=== PATIENT | male | born 1950 | race Caucasian/White ===

== ENCOUNTER 2018-07-20 23:38 | Inpatient (IN) | payer BC, MEDICARE ==
[2018-07-21] MEDS ORDERED: Communication Order-Pharmacy FS SCH (01:45)
[2018-07-21 02:23] LABS: #Eosinphils 0.1 thou/uL (0.0-0.7); #Lymphocytes 1.8 thou/uL (1.20-3.40); #Monocytes 0.5 thou/uL (0.11-0.59); #Neutrophils 3.1 thou/uL (1.40-6.50); %Basophils 0.8 % (0.0-1.0); %Eosinophils 2.2 % (0.0-10.0); %Lymphocytes 31.6 % (21.0-51.0); %Monocytes 9.6 % (0.0-10.0); %Neutrophils 55.8 % (42.0-75.0); Hemoglobin 14.7 g/dL (14.0-18.0); Mean Corpuscular HGB CONC 33.1 g/dL (32.0-36.0); Mean Corpuscular Hemoglobin 33.3 pg (27.0-31.0); Platelet Count 166 thou/uL (130-400); RBC Distribution Width 12.4 % (11.5-14.5); Red Blood Cell (RBC) Count 4.41 mill/uL (4.70-6.10); White Blood Cell (WBC) Count 5.5 thou/uL (4.8-10.8)
[2018-07-21 02:30] LABS: INR-International Normal Ratio 1.1; PTT 26.9 SEC (22.9-36.1)
[2018-07-21 02:43] LABS: Anion Gap 16 mmol/L (10-20); BUN (Urea Nitrogen) 14 mg/dL (8.4-25.7); Calc. Creatinine Clearance 0 mL/min (70-130); Calcium 9.9 mg/dL (7.8-10.44); Carbon Dioxide 23 mmol/L (23-31); Chloride 107 mmol/L (98-107); Estimated GFR-MDRD Greater than 90; Glucose 107 mg/dL (80-115); Potassium 3.9 mmol/L (3.5-5.1); Sodium 142 mmol/L (136-145)
--- NOTE | 2018-07-21 03:17 | CON ---
DATE OF CONSULTATION: This is a 15-minute initial patient evaluation of which greater than 50% of the exam was spent counseling and coordinating the patient's care. Remainder of the exam was spent in review of the the patient's medical records and formulation of treatment plan as well as review of appropriate imaging studies. CHIEF COMPLAINT: Status post fall with traumatic subarachnoid hemorrhage. HISTORY OF PRESENT ILLNESS: Mr. Long is a 67-year-old male who presents to [facility] [place] as a transfer from [facility] [place] as he fell earlier today, striking the right side of his head resulting in bilateral traumatic subarachnoid hemorrhage. The patient is diabetic and had some kind of likely osteomyelitis of the right foot, which required several toes to be amputated. This has resulted in significant balance issues for the patient, although he has a walker at home, typically does not use it and intermittently uses a cane. Falls are common for him. Again, his balance is unstable. He underwent stent placement by Dr. Coleman at [facility] in 06/2018, which included one stent placement and is currently on Effient and 81 mg aspirin. The patient complains of headache and has noted that he does display some concussive like symptoms and he is forgetful and is not as energetic as he normally is. Review of patient's head CT from [facility] [place] shows bilateral left greater than right traumatic subarachnoid hemorrhage without evidence of skull fracture or hydrocephalus. PHYSICAL EXAMINATION: The patient is awake, alert, and appropriate. He has a repaired right scalp laceration. His pupils are sluggishly reactive and the right pupil is 2 to 3 mm, where the left pupil is 3 to 4 mm. The patient denies blurred vision. He follows commands equally in all four extremities and he has no pronator drift. GCS currently is 15. IMPRESSION/DIAGNOSES: Status post fall on Effient and aspirin for cardiac stenting in 06/2018 with left greater than right traumatic subarachnoid hemorrhage. PLAN: Our Trauma colleagues have graciously admitting the patient. We will continue to follow him closely. I have asked that he be placed in the CCU with every 1 hour neuro checks. Head of bed elevated at 30 degrees. He has no tenderness to palpation in the neck and does not complain of neck pain and therefore, collar is not required. We will hold his Effient and aspirin for the time being. I have updated the patient and his family that he likely does not require any type of neurosurgical intervention, but we will follow him with serial CT scans. This is certainly good news for the patient. Please call with any changes in the patient's neurologic status. I have asked that his systolic blood pressure remain less than 150 and he is n.p.o. until his repeat head CT has been completed in the morning. Again, please call with questions in the patient's neurologic exam. Otherwise, we will follow up later. Job ID: [id number]
--- NOTE | 2018-07-21 04:34 | HP ---
The trauma surgeon is Dr. Abelino Hardin. CONSULTING PHYSICIAN: Dr. Winn, Neurosurgery. HISTORY OF PRESENT ILLNESS: Patient is a 67-year-old male, who reported tripping over his cat, falling and striking his head on the right side with positive loss of consciousness. He does take aspirin and Effient at home and had a one cardiac stent placed on June 21 of this year. Patient arrived to the emergency department and received a CT of the head, which demonstrated bilateral subarachnoid hematomas. Subsequently, Neurosurgery was consulted as well as Trauma Surgery. Patient has GCS of 15 and neurologically intact. He reports that he has a slight headache, but otherwise no other complaints. Denies nausea, vomiting, or diarrhea, difficulty concentrating as well as difficulty with his vision. REVIEW OF SYSTEMS: All additional 10-point review of systems negative, except as indicated above. PAST MEDICAL HISTORY: Cardiac stent x1, June 21, 2018; diabetes; hypertension. PAST SURGICAL HISTORY: Three back surgeries, left shoulder surgery, bilateral knee replacements, and a gastric sleeve. SOCIAL HISTORY: Patient does not use any tobacco products or illegal drugs. He is a daily drinker, however. MEDICATIONS: Effient, Aspirin, Amlodipine, Metoprolol, Metformin, and Duloxetine ALLERGIES: NO KNOWN DRUG ALLERGIES. PHYSICAL EXAMINATION: VITAL SIGNS: Heart rate 78, blood pressure 117/73, respirations 18, and O2 saturation 97% on room air. PRIMARY SURVEY: Airway intact. Adequate breath sounds bilaterally. 2+ distal pulses palpable in the bilateral radials, femorals, and DPs. GCS is 15. Gross motor and sensation intact. Pupils equal, round, and reactive to light. No focal neurological deficits. Abrasion laceration to the right forehead with navi in place and bleeding controlled, minimal abrasions to bilateral knees. No bruising noted. No significant external bleeding noted. SECONDARY SURVEY: Head abrasion laceration to right forehead with navi in place. Bleeding well controlled. No gross palpable skull deformities or tenderness. Eyes, 2 to 1 bilaterally. Right pupil is slightly smaller compared to the left , but otherwise reactive. ENT, no hemotympanum. No epistaxis. No septal hematoma. Midface stable to manipulation. No blood in the oropharynx. Dentition is intact. No anterior neck injury/crepitus/tenderness. C-spine no step-offs or tenderness or deformities, C-collar not in place. CHEST: Nontender. No crepitus. No abrasions or ecchymosis. Equal chest rise and fall. ABDOMEN: Soft, nontender, and nondistended. PELVIS: Stable to palpation. Nontender. No abrasions or ecchymosis. RECTAL: Deferred. GENITOURINARY: Deferred. EXTREMITIES: Very superficial abrasion to bilateral knees. No abrasions or ecchymosis noted. 2+ radials, femorals, and DP pulses present bilaterally. BACK/SPINE: No step-offs or deformities or tenderness to palpation of the thoracic or lumbar spine. No abrasions or ecchymosis noted. NEUROLOGIC: GCS is 15. 5/5 strength in the bilateral rate clerk, plantar flexion, and dorsiflexion. Gross motor and sensation intact in all 4 extremities. LABORATORY DATA: White count 5.5, hemoglobin 14.7, hematocrit 44.3, and platelets 166. INR 1.1. Sodium 142, potassium 3.9, chloride 107, carbon dioxide 23, BUN 14, and creatinine 0.67. DIAGNOSTIC FINDINGS: CT of the brain demonstrated bilateral subarachnoid hemorrhages. ASSESSMENT: 1. Status post mechanical fall from standing with loss of consciousness. 2. Bilateral subarachnoid hemorrhages. 3. History of diabetes, hypertension, and cardiac stents one month ago. 4. History of alcohol abuse. PLAN: Patient will be admitted to the CCU. Dr. Winn was consulted, who recommended q.1 hour neuro checks, head of bed up at 30 degrees, and a repeat head CT in the morning. Would complete CT of the head earlier if patient has a decline in his GCS. Will be n.p.o., but can have sips with medications. We will start Serax in the a.m. for alcohol withdrawal. We will also receive blood draw in the a.m. He is going to be on insulin sliding scale with q.4 hour glucose checks. He will also be on a bowel regimen. Patient was seen and examined by Dr. Dr. Hardin and myself this morning in the emergency department. Job ID: [id number] [facility]
[2018-07-21] MEDS ORDERED: Dextrose 50% Abboject 50 ML SYRINGE SLOW IVP PRN (07:23)
[2018-07-21] MEDS ORDERED: Promethazine HCl 25 MG/ML VIAL IM PRN (07:23)
[2018-07-21] MEDS ORDERED: HumaLOG 300 UNITS/3 ML VIAL SC PRN (07:23)
[2018-07-21] MEDS ORDERED: Ondansetron PF 4 MG/2 ML Vial IVP PRN (07:23)
[2018-07-21] MEDS ORDERED: Sodium Chloride 0.9% 1,000 ML IV SCH (07:23)
[2018-07-21] MEDS ORDERED: Dextrose 5% in Water 1,000 ML IV PRN (07:23)
[2018-07-21] MEDS ORDERED: traMADol HCl 50 MG TAB PO PRN ×2 (07:23)
[2018-07-21] MEDS ORDERED: Morphine 4 MG/ML VIAL SLOW IVP PRN (08:21)
[2018-07-21] MEDS: hydrALAZINE 20 MG/ML VIAL SLOW IVP PRN (08:34)
[2018-07-21 08:54] VITALS: BMI 32.8
--- NOTE | 2018-07-21 08:55 | CT ---
CT HEAD NONCONTRAST: Date: 07/21/18 HISTORY: Intracranial hemorrhage. Follow-up. COMPARISON: Earlier exam same date. FINDINGS: Areas of subarachnoid hemorrhage within sulci over each temporal lobe and each frontal lobe are simil ar in appearance to the prior study. Small amount of subdural hematoma along the anterior falx is als o stable. Septum pellucidum remains midline. No intraventricular hemorrhage is apparent. Basilar cist erns are maintained. Large right frontal scalp injury is similar in appearance to the prior study. IMPRESSION: Subarachnoid and subdural blood, and other findings are stable. POS: [facility]
[2018-07-21] MEDS: Labetalol HCl 100 MG/20 ML VIAL SLOW IVP PRN ×2 (09:06→10:01)
[2018-07-21] MEDS: Acetaminophen 1,000 MG in Premix Bag 1 BAG IVPB SCH ×3 (09:09→20:06)
[2018-07-21 10:39] LABS: Magnesium 1.6 mg/dL (1.6-2.6); Phosphorus 3.6 mg/dL (2.3-4.7)
[2018-07-21] MEDS ORDERED: Labetalol HCl 100 MG/20 ML VIAL SLOW IVP PRN (10:57)
[2018-07-21] MEDS ORDERED: hydrALAZINE 20 MG/ML VIAL SLOW IVP PRN (10:57)
[2018-07-21] MEDS ORDERED: niCARdipine HCl 25 MG in Sodium Chloride 0.9% 250 ML 240 ML IVPB SCH (11:00)
[2018-07-21] MEDS: Senokot S 8.6-50 MG TAB PO SCH ×2 (11:39→20:08)
[2018-07-21] MEDS: Gabapentin 100 MG CAP PO SCH ×3 (11:39→20:09)
[2018-07-21] MEDS: Oxazepam 10 MG CAP PO SCH ×3 (11:39→23:32)
[2018-07-21] MEDS: Polyethylene Glycol 3350 17 GM Packet PO SCH (11:40)
[2018-07-21] MEDS: Famotidine 20 MG TAB PO SCH ×2 (11:40→20:10)
--- NOTE | 2018-07-21 11:42 | PRG ---
DATE OF SERVICE: 07/21/2018 This is a 30-minute initial hospital visit note, in which 30 minutes were spent reviewing the imaging record, evaluation, examination of the patient, formulation of plan. Greater than 50% time was spent in counseling on Mau Long. SUBJECTIVE: Mr. Long is a 67-year-old man who was admitted for fall. He sustained right greater than left traumatic subarachnoid hemorrhage. He is on aspirin and Effient, status post cardiac stenting at [facility] one month ago. There was a slight increase on his intracranial bleed post admission but neurologically has remained intact and nonfocal. He has a right frontal laceration that was repaired with navi. He has associated ecchymoses in the right perioral region. We will plan to mobilize him and I would be fine with dismissal. I have let the patient know that ideally he would be on dual antiplatelet therapy. The problem is if we do this now, he runs the high risk of expansion of his intracranial bleed. My contention would be, continue a baby aspirin for the next two weeks with a repeat head CT in my clinic and if everything is fine, we will plan for re-initiation of Effient. He should contact his senior ux designer as well to let him know this. It is my understanding that the senior ux designer would likely want him to be on dual antiplatelet therapy for three months, but more likely six months. DIAGNOSIS: Traumatic subarachnoid hemorrhage, on dual antiplatelet therapy, status post fall. Job ID: [id number]
[2018-07-21] MEDS ORDERED: Magnesium 2 GM/50 ML 2 GM in Premix Bag 1 BAG IVPB SCH (12:00)
[2018-07-21] MEDS ORDERED: Aspirin 81 mg Enteric Coated Tablet PO SCH (12:00)
[2018-07-21] MEDS ORDERED: Metoprolol Tartrate 100 MG TAB PO SCH (12:00)
[2018-07-21] MEDS ORDERED: Amlodipine 5 MG TAB PO SCH (12:00)
[2018-07-21] MEDS ORDERED: Potassium Phosphate 15 MMOL in Sodium Chloride 0.9% 250 ML 250 ML IVPB SCH (13:00)
--- NOTE | 2018-07-21 14:06 | CT ---
PRELIMINARY REPORT/[facility]/EMERGENTY AFTER-HOURS PROCEDURE Addendum created by Ilana Goodwin MD on 07/21/2018 1:55 AM Central Time ([place] & [place]) THIS REPORT CONTAINS FINDINGS THAT MAY BE CRITICAL TO PATIENT CARE. The findings were verbally commun icated via telephone conference with Shelly Hirsch by Dr. Goodwin on 07/21/2018 1:55 AM FINANCIAL SERVICES COUNSELOR. The re sults were acknowledged and understood. Initial Report created on 07/21/2018 1:54 AM Central Time ([place] & [place]) EXAM: CT Head Without Contrast EXAM DATE/TIME: 07/21/2018 1:34 AM CLINICAL HISTORY: 67 years old, male; Injury or trauma; Fall; Initial encounter; Blunt trauma (contusions or hematomas) ; Patient HX: M67 presents to ed via xfer from [facility]. PT reports he tripped over his cat and fe ll earlier today. PT is unsure of loc. Denies ACUNA, vision changes, nausea, chest pain, or SOB. PT is o n blood thinners, aspirin and effient. Last dose of effient was at 0800 this morning TECHNIQUE: Axial computed tomography images of the head/brain without contrast. COMPARISON: No relevant prior studies available. FINDINGS: Brain: Moderate, acute bilateral subarachnoid hemorrhages opacifying insular and lateral parietal sulci bila terally. There is also small acute subdural hematoma along the interhemispheric fissure anteriorly, m easuring 2.5 cm in length and 0.6 cm in transverse dimension. There is global and diffuse parenchymal volume loss. There are scattered foci of decreased attenuation in the periventricular and subcortical white matter, nonspecific, but most consistent wit h chronic small vessel ischemic changes in patient of this age. Ventricles / cisterns / extra-axial spaces: There is no hydrocephalus or midline shift. 8 mm colloid cyst noted at the midline in the region of t he third ventricle. Soft tissues: Large right frontoparietal subgaleal scalp hematoma without underlying skull fracture o r depression. Sinuses: No findings of acute sinusitis or suspicious sinus mass. Bone: No acute fracture or displacement. Impression: Moderate acute bilateral subarchnoid hemorrhages. Small acute subdural hemorrhage. No hydrocephalus, midline shift, or axial herniation. Small colloid cyst. Chronic volume loss and microvascular disease. Large right frontoparietal subgaleal scalp hematoma without underlying skull fracture or depression. Thank you for allowing us to participate in the care of your patient. Dictated and Authenticated by: Ilana Goodwin MD 07/21/2018 1:54 AM Central Time ([place] & [place]) FINAL REPORT CT HEAD NONCONTRAST PERFORMED ON AN EMERGENCY BASIS: Date: 07/21/18 Time: 0135 hours HISTORY: Fall. Head injury. FINDINGS/IMPRESSION: Findings agree with the preliminary report by Cornelio. Bilateral subarachnoid hemorrhage is confirmed. S mall anterior falcine subdural hematoma. Small colloid cyst. Large scalp injury over the right fronta l calvarium. POS: [facility]
[2018-07-21] MEDS ORDERED: DULoxetine 60 MG CAP PO SCH (21:00)
[2018-07-21] MEDS ORDERED: Pravastatin Sodium 20 MG TAB PO SCH (21:00)
--- NOTE | 2018-07-21 23:19 | PDOC.GSPN ---
Surgery Progress Note: Subj - Subjective Narrative: Saw and personally examined patient in the emergency room at time of admission and again on rounds this morning with trauma PA. Agree with treatment plan. Surgery Progress Note: Obj - Vital signs Vital signs: Vital Signs - Most Recent Temp Pulse Resp BP Pulse Ox 98.8 F 75 16 145/89 H 97 07/21/18 20:00 07/21/18 20:00 07/21/18 20:00 07/21/18 20:00 07/21/18 20:00 Surgery Progress Note: Results - Labs Result Diagrams: 07/21/18 02:16 07/21/18 02:16 Lab results: Laboratory Results - last 24 hr 07/21/18 07/21/18 07/21/18 15:21 20:28 21:02 POC Glucose 131 H 139 H POC Glucose (other) 142 H
[2018-07-22] MEDS: hydrALAZINE 20 MG/ML VIAL SLOW IVP PRN ×2 (00:05→05:05)
[2018-07-22] MEDS: Labetalol HCl 100 MG/20 ML VIAL SLOW IVP PRN (00:46)
[2018-07-22] MEDS: Acetaminophen 1,000 MG in Premix Bag 1 BAG IVPB SCH ×2 (01:35→09:27)
[2018-07-22 08:01] VITALS: TEMP 97.7
[2018-07-22] MEDS: Senokot S 8.6-50 MG TAB PO SCH (08:12)
[2018-07-22] MEDS: Gabapentin 100 MG CAP PO SCH (08:13)
[2018-07-22] MEDS: Famotidine 20 MG TAB PO SCH (08:13)
[2018-07-22] MEDS: Polyethylene Glycol 3350 17 GM Packet PO SCH (08:15)
[2018-07-22 08:20] VITALS: BP 157/89
[2018-07-22 08:36] LABS: #Eosinphils 0.3 thou/uL (0.0-0.7); #Lymphocytes 1.2 thou/uL (1.20-3.40); #Monocytes 0.9 thou/uL (0.11-0.59); %Basophils 0.6 % (0.0-1.0); %Eosinophils 4.3 % (0.0-10.0); %Lymphocytes 19.2 % (21.0-51.0); %Monocytes 13.3 % (0.0-10.0); %Neutrophils 62.5 % (42.0-75.0); Hemoglobin 14.5 g/dL (14.0-18.0); Mean Corpuscular HGB CONC 33.2 g/dL (32.0-36.0); Mean Corpuscular Hemoglobin 32.7 pg (27.0-31.0); Mean Corpuscular Volume 98.3 fL (78.0-98.0); Mean Platelet Volume 8.2 fL (7.4-10.4); Platelet Count 170 thou/uL (130-400); RBC Distribution Width 12.6 % (11.5-14.5); Red Blood Cell (RBC) Count 4.43 mill/uL (4.70-6.10); White Blood Cell (WBC) Count 6.4 thou/uL (4.8-10.8)
[2018-07-22 08:57] LABS: Anion Gap 12 mmol/L (10-20); BUN (Urea Nitrogen) 11 mg/dL (8.4-25.7); Calc. Creatinine Clearance 199 mL/min (70-130); Calcium 9.6 mg/dL (7.8-10.44); Carbon Dioxide 24 mmol/L (23-31); Chloride 105 mmol/L (98-107); Estimated GFR-MDRD Greater than 90; Glucose 137 mg/dL (80-115); Phosphorus 2.6 mg/dL (2.3-4.7); Potassium 3.8 mmol/L (3.5-5.1); Sodium 137 mmol/L (136-145)
[2018-07-22] MEDS ORDERED: Thiamine 100 MG TAB PO SCH (09:00)
[2018-07-22] MEDS ORDERED: Aspirin 81 mg Enteric Coated Tablet PO SCH (09:00)
[2018-07-22] MEDS ORDERED: Amlodipine 5 MG TAB PO SCH (09:00)
[2018-07-22] MEDS ORDERED: Metoprolol Tartrate 100 MG TAB PO SCH (09:00)
[2018-07-22] MEDS ORDERED: CeleCOXIB 100 MG CAP PO SCH (09:00)
[2018-07-22] MEDS ORDERED: Folic Acid 1 MG TAB PO SCH (09:00)
[2018-07-22] MEDS: Oxazepam 10 MG CAP PO SCH (09:26)
--- NOTE | 2018-07-22 12:37 | DIS ---
DATE OF ADMISSION: 07/21/2018 DATE OF DISCHARGE: 07/22/2018 ADMISSION DIAGNOSES: Status post mechanical fall from standing, bilateral subarachnoid hemorrhages, and right forehead abrasion/laceration. DISCHARGE DIAGNOSES: Status post mechanical fall from standing, bilateral subarachnoid hemorrhages, and right forehead abrasion/laceration. CONSULTING PHYSICIAN: Dr. Winn, Neurosurgery. PROCEDURES PERFORMED: None. DISCHARGE DISPOSITION: Home. DISCHARGE CONDITION: Satisfactory. PHYSICAL EXAMINATION: VITAL SIGNS: Temperature 97.7, heart rate 102, respirations 20, oxygen saturation 93% on room air, blood pressure 157/89. NEUROLOGIC: GCS is 15. No gross neurological deficits. Gross motor and sensation are intact. PULMONARY: Equal chest rise and fall. Clear lung sounds bilaterally. No signs of respiratory distress. CARDIAC: Regular rate and rhythm. No murmurs, gallops, or rubs. GI: Abdomen is soft, nontender, and nondistended. EXTREMITIES: Normal gross motor and sensation. 2+ pulses in all extremities. No significant swelling noted. DISCHARGE INSTRUCTIONS: The patient was discharged home, and family will be able to take care of him. He will have home physical therapy for balance and mobility. He has a walker at home, and he will use the walker. He was given a prescription for tramadol for pain. He will follow up with Neurosurgery in 2 weeks. He was told that he can take his aspirin, but should hold off on his Effient due to his traumatic brain injury. MEDICATIONS: 1. Tramadol. 2. Pravastatin. 3. Cymbalta. 4. Metoprolol. 5. Aspirin. 6. Thiamine. 7. Metformin. 8. Celecoxib. 9. Amlodipine. FOLLOWUP APPOINTMENTS: He will follow up with Dr. Winn in 2 weeks. He will repeat a head CT before followup. This is merely a summary of the patient's hospitalization. For full details, please see his medical chart in its entirety. Job ID: [id number]
== END 2018-07-22 11:30 | disposition home health service (06) | DRG 84 ==
LOC: ERS 23:38 → CCU 07-21 01:42 → SURG A 07-21 15:41
PROVIDERS: ADMIT Surgery; ATTEND Surgery
DX: S06.6X9A Traumatic subarachnoid hemorrhage with loss of consciousness of unspecified duration, initial encounter (principal); E11.9 Type 2 diabetes mellitus without complications; I10 Essential (primary) hypertension; S01.81XA Laceration without foreign body of other part of head, initial encounter; R40.2362 Coma scale, best motor response, obeys commands, at arrival to emergency department; R40.2252 Coma scale, best verbal response, oriented, at arrival to emergency department; R40.2142 Coma scale, eyes open, spontaneous, at arrival to emergency department; Z79.84 Long term (current) use of oral hypoglycemic drugs; Z79.02 Long term (current) use of antithrombotics/antiplatelets; Z79.82 Long term (current) use of aspirin; Z79.899 Other long term (current) drug therapy; Z95.5 Presence of coronary angioplasty implant and graft; Z96.653 Presence of artificial knee joint, bilateral; W01.0XXA Fall on same level from slipping, tripping and stumbling without subsequent striking against object, initial encounter
CPT/HCPCS: 36415; 36416; 70450; 80048; 83735; 84100; 85025; 85610; 85730; 93005; 93010; G0390; J0131; J0360; J3475; J7050

== ENCOUNTER 2018-08-05 13:30 | Outpatient (CLI) | payer MEDICARE ==
--- NOTE | 2018-08-05 15:39 | CT ---
HEAD CT NONCONTRAST: Comparison: 07-25-18 Indication: Intracranial hemorrhage, follow up. FINDINGS: Compared to prior exam there has been marked interval improvement with regard to prior acute intracra nial hemorrhage. There is a persistent focal density near the Foramen of Garcia compatible with a col loid cyst. Right frontal scalp hematoma is seen. There is mild opacification of the paranasal sinuses . IMPRESSION: 1. Marked interval improvement of prior intracranial hemorrhage. No significant intracranial hemorrha ge persists. There is no mass effect or midline shift. 2. Small hyperdensity of the anterior third ventricle compatible with colloid cyst. 3. Right frontal scalp hematoma. POS: [facility]
== END 2018-08-05 13:31 | disposition home or self-care (01) ==
LOC: TBSIIMAG 13:30
PROVIDERS: ATTEND Surgery
DX: S06.6X0D Traumatic subarachnoid hemorrhage without loss of consciousness, subsequent encounter (principal)
CPT/HCPCS: 70450

== ENCOUNTER 2020-06-18 11:58 | Outpatient (CLI) | payer MEDICARE ==
[2020-06-18 14:33] LABS: Hemoglobin 14.3 g/dL (14.0-18.0); Mean Corpuscular HGB CONC 33.7 G/DL (32.0-36.0); Mean Corpuscular Hemoglobin 32.3 PG (27.0-33.0); Mean Corpuscular Volume 95.7 fl (80.0-100.0); Mean Platelet Volume 10.3 fl (7.4-10.4); Platelet Count 225 10x3/uL (130-400); RBC Distribution Width 13.8 % (11.5-14.5); Red Blood Cell (RBC) Count 4.43 10x6/uL (4.40-5.80); White Blood Cell (WBC) Count 4.8 10x3/uL (4.5-11.0)
[2020-06-18 14:51] LABS: Anion Gap 19 mmol/L (10-20); BUN (Urea Nitrogen) 20 mg/dL (8.4-25.7); Calc. Creatinine Clearance 0 mL/min (70-130); Calcium 9.7 mg/dL (7.8-10.44); Carbon Dioxide 24 mmol/L (23-31); Chloride 101 mmol/L (98-107); Glucose 103 mg/dL (80-115); Potassium 4.6 mmol/L (3.5-5.1); Sodium 139 mmol/L (136-145)
[2020-06-18 15:04] LABS: INR-International Normal Ratio 1.1; Prothrombin Time 11.9 sec (9.5-12.1)
[2020-06-19 06:16] LABS: SARS-CoV-2 PCR by NAA Not Detected (NotDetected)
== END 2020-06-18 11:59 | disposition home or self-care (01) ==
LOC: LABBT 11:58
PROVIDERS: ATTEND Internal Medicine Cardiovascular Disease
DX: Z01.812 Encounter for preprocedural laboratory examination (principal); Z20.822 Contact with and (suspected) exposure to COVID-19; R00.1 Bradycardia, unspecified
CPT/HCPCS: 80048; 85027; 85610; U0003; U0005; 87635

== ENCOUNTER → 2020-06-22 | Day surgery (SDC) | payer MEDICARE ==
[2020-06-21 11:10] VITALS: BMI 37.1
[~2020-06-22] MED LIST: Acetaminophen/Codeine 30-300mg Tablet ONE; CEFAZOLIN 1 GM VIAL ONE; Fentanyl 100 MCG/2 ML VIAL ONE; Gentamicin 80 MG/2 ML VIAL ONE; Iopamidol 370 76% 50 ML VIAL FS ONE; Midazolam HCl 2 mg/2 ml Vial ONE; Vancomycin 1.5 GRAM/300 ML BAG ONE; hydrALAZINE 20 MG/ML VIAL ONE; hydrALAZINE 20 MG/ML VIAL SLOW IVP SCH
--- NOTE | 2020-06-22 13:54 | RAD ---
CHEST ONE VIEW: 06/22/20 HISTORY: Pacemaker placement. COMPARISON: None. FINDINGS: Dual lead pacer is in place with leads poorly seen due to poor penetration although the electrode tip s are felt to project over the right atrial appendix and right ventricle. Large right pleural effusio n. Heart size is enlarged. No pneumothorax. IMPRESSION: 1. Pacemaker electrode tips felt to project over the right atrial appendage and right ventricle. 2. Marked cardiomegaly. 3. Large right layering pleural effusion. 4. No pneumothorax. POS: [facility]
--- NOTE | 2020-06-24 13:14 | EKG ---
Test Reason : POST PACEMAKER INSER Blood Pressure : / mmHG Vent. Rate : 062 BPM Atrial Rate : 062 BPM P-R Int : 128 ms QRS Dur : 100 ms QT Int : 430 ms P-R-T Axes : -04 005 100 degrees QTc Int : 436 ms Atrial fibrillation with intermittent Ventricular pacing Sinus rhythm with Premature ventricular complexes or Fusion complexes Inferior infarct , age undetermined Abnormal ECG No previous ECGs available Confirmed by DR. Richie CHIU ([id number]) on 06/24/2020 1:14:03 PM Referred By: ANDREW Confirmed By:DR. Richie CHIU
== END ==
LOC: CCL 08:39
PROVIDERS: ATTEND Internal Medicine Cardiovascular Disease
PROC: 0JH606Z Insertion of Pacemaker, Dual Chamber into Chest Subcutaneous Tissue and Fascia, Open Approach (ICD-10-PCS; principal; 2020-06-22)
PROC: 02H63JZ Insertion of Pacemaker Lead into Right Atrium, Percutaneous Approach (ICD-10-PCS; 2020-06-22)
PROC: 02HK3JZ Insertion of Pacemaker Lead into Right Ventricle, Percutaneous Approach (ICD-10-PCS; 2020-06-22)
DX: I49.5 Sick sinus syndrome (principal); R00.1 Bradycardia, unspecified; I48.0 Paroxysmal atrial fibrillation; I48.4 Atypical atrial flutter; G47.33 Obstructive sleep apnea (adult) (pediatric); I25.10 Atherosclerotic heart disease of native coronary artery without angina pectoris; E11.9 Type 2 diabetes mellitus without complications; E78.5 Hyperlipidemia, unspecified; I10 Essential (primary) hypertension; N40.0 Benign prostatic hyperplasia without lower urinary tract symptoms; I49.3 Ventricular premature depolarization; Z87.891 Personal history of nicotine dependence; Z79.01 Long term (current) use of anticoagulants; Z79.84 Long term (current) use of oral hypoglycemic drugs; Z79.899 Other long term (current) drug therapy; Z95.5 Presence of coronary angioplasty implant and graft; Z98.84 Bariatric surgery status
CPT/HCPCS: 33208; 71045; 75820; 93005; 93010; 99152; 99153; C1785; C1898; J0360; J0690; J1580; J2250; J3010; J3370; Q9967

== ENCOUNTER 2021-05-27 11:03 | Outpatient (CLI) | payer MEDICARE | END 2021-05-27 11:04 | disposition home or self-care (01) | LOC: CT 11:03 | PROVIDERS: ATTEND Surgery | DX: M54.50 Low back pain, unspecified (principal); M47.816 Spondylosis without myelopathy or radiculopathy, lumbar region; M48.07 Spinal stenosis, lumbosacral region; M48.061 Spinal stenosis, lumbar region without neurogenic claudication; Z98.890 Other specified postprocedural states | CPT/HCPCS: 72131 ==

== ENCOUNTER 2021-06-07 11:32 | Outpatient (CLI) | payer MEDICARE ==
[2021-06-07 12:49] LABS: INR-International Normal Ratio 1.1; PTT 26.4 sec (22.0-33.0); Prothrombin Time 12.1 sec (9.5-12.1)
[2021-06-07 13:00] LABS: Hemoglobin 10.3 g/dL (13.5-17.5); Mean Corpuscular Hemoglobin 33.6 pg (27.0-33.0); Mean Corpuscular Volume 98.7 fl (81.2-95.1); Mean Platelet Volume 9.9 fl (7.4-10.4); Platelet Count 253 10x3/uL (150-450); RBC Distribution Width 12.9 % (11.5-14.5); Red Blood Cell (RBC) Count 3.07 10x6/uL (4.32-5.72); White Blood Cell (WBC) Count 5.2 10x3/uL (3.5-10.5)
[2021-06-07 13:05] LABS: Anion Gap 18 mmol/L (10-20); BUN (Urea Nitrogen) 75 mg/dL (8.4-25.7); Calc. Creatinine Clearance 0 mL/min (70-130); Calcium 9.4 mg/dL (7.8-10.44); Carbon Dioxide 28 mmol/L (23-31); Chloride 94 mmol/L (98-107); Glucose 124 mg/dL (80-115); Potassium 4.5 mmol/L (3.5-5.1); Sodium 135 mmol/L (136-145)
[2021-06-08 10:24] LABS: SARS-CoV-2 PCR by NAA DETECTED (NotDetected)
== END 2021-06-07 11:33 | disposition home or self-care (01) ==
LOC: LABBT 11:32
PROVIDERS: ATTEND Surgery
DX: U07.1 COVID-19 (principal); Z01.818 Encounter for other preprocedural examination; M54.16 Radiculopathy, lumbar region; M48.062 Spinal stenosis, lumbar region with neurogenic claudication
CPT/HCPCS: 80048; 85027; 85610; 85730; 93005; U0003; U0005; 93010

== ENCOUNTER 2021-07-07 06:20 | Observation (INO) | payer MEDICARE ==
[2021-06-07 10:14] VITALS: BMI 38.2
[2021-07-07] MEDS ORDERED: Famotidine/PF 20 mg/2ml Vial ONE ×2 (06:54→08:53)
[2021-07-07] MEDS ORDERED: Thrombin 5000 UNITS/5 ML VIAL ONE ×2 (08:26→10:36)
[2021-07-07] MEDS ORDERED: HYDROmorphone 2 MG/ML VIAL SLOW IVP PRN ×2 (08:31→12:51)
[2021-07-07] MEDS ORDERED: Promethazine HCl 25 MG/ML VIAL IM PRN ×2 (08:31→12:51)
[2021-07-07] MEDS ORDERED: Promethazine HCl 25 MG/ML VIAL IVPB PRN ×2 (08:31→12:51)
[2021-07-07] MEDS ORDERED: Meperidine HCl/PF 25 MG/ML VIAL SLOW IVP PRN (08:31)
[2021-07-07] MEDS ORDERED: ceFAZolin Sodium (SDC) 2 GM/100 ML BAG ONE (08:43)
[2021-07-07] MEDS ORDERED: Phenylephrine 10 MG/ML VIAL ONE (08:45)
[2021-07-07] MEDS ORDERED: Fentanyl 250 MCG/5 ML VIAL ONE ×2 (08:51→13:33)
[2021-07-07] MEDS ORDERED: PHENYLEPHRINE-NS 100 MCG/ML 10 ML SYRINGE ONE (09:05)
[2021-07-07] MEDS ORDERED: Ondansetron PF 4 MG/2 ML Vial ONE (09:05)
[2021-07-07] MEDS ORDERED: Lidocaine 1% PF 5 ML VIAL ONE (09:05)
[2021-07-07] MEDS ORDERED: PROPOFOL 200 MG/20 ML VIAL ONE (09:05)
[2021-07-07] MEDS ORDERED: Metoclopramide HCl 10 MG/2 ML VIAL ONE (09:05)
[2021-07-07] MEDS ORDERED: ePHEDrine 50 MG/ML VIAL ONE (09:05)
[2021-07-07] MEDS ORDERED: Rocuronium Bromide 10 MG/ML (10ML VIAL) ONE (09:05)
[2021-07-07] MEDS ORDERED: SUGAMMADEX SODIUM 200 MG/2 ML VIAL ONE (11:05)
[2021-07-07] MEDS ORDERED: HYDROmorphone 2 MG/ML VIAL ONE (11:58)
[2021-07-07] MEDS ORDERED: Acetaminophen/Codeine 30-300mg Tablet PO PRN (12:31)
[2021-07-07] MEDS ORDERED: traMADol HCl 50 MG TAB PO PRN (12:31)
[2021-07-07] MEDS ORDERED: Acetaminophen 325 MG TAB PO PRN (12:31)
[2021-07-07] MEDS ORDERED: HYDROcodone/Acetaminophen 7.5/325 mg Tablet PO PRN (12:31)
[2021-07-07] MEDS ORDERED: hydrALAZINE 20 MG/ML VIAL SLOW IVP PRN (12:34)
[2021-07-07] MEDS ORDERED: Cyclobenzaprine 10 MG TAB PO PRN (12:35)
[2021-07-07] MEDS ORDERED: Ondansetron HCl/PF 4 MG/2 ML Vial IVP PRN (12:51)
[2021-07-07] MEDS: Sodium Chloride 0.9% 1,000 ML IV SCH (15:25)
[2021-07-07] MEDS: Morphine 4 MG/ML VIAL SLOW IVP PRN ×2 (15:32→20:27)
[2021-07-07] MEDS: CEFAZOLIN 2 GM, Admixture Fee 1 EACH in Sodium Chloride 0.9% 100 ML IVPB SCH (18:22)
[2021-07-07] MEDS: Carvedilol 25 MG TAB PO SCH (20:28)
[2021-07-07] MEDS ORDERED: Simvastatin 5 MG TAB PO SCH (21:00)
[2021-07-07] MEDS ORDERED: DULoxetine 60 MG CAP PO SCH (21:00)
[2021-07-08] MEDS: CEFAZOLIN 2 GM, Admixture Fee 1 EACH in Sodium Chloride 0.9% 100 ML IVPB SCH (02:01)
[2021-07-08] MEDS: Sodium Chloride 0.9% 1,000 ML IV SCH (03:43)
[2021-07-08] MEDS: Morphine 4 MG/ML VIAL SLOW IVP PRN (06:27)
[2021-07-08 08:31] VITALS: BP 142/72; TEMP 99.1
[2021-07-08] MEDS: Carvedilol 25 MG TAB PO SCH (08:44)
[2021-07-08] MEDS ORDERED: Tamsulosin HCl 0.4 MG CAP PO SCH (09:00)
[2021-07-08] MEDS ORDERED: Amiodarone 200 MG TAB PO SCH (09:00)
[2021-07-08] MEDS ORDERED: Lisinopril 20 MG TAB PO SCH (09:00)
[2021-07-08] MEDS ORDERED: Torsemide 20 MG TAB PO SCH (09:00)
[2021-07-08] MEDS ORDERED: Metolazone 2.5 MG TAB PO SCH (09:00)
== END 2021-07-08 11:45 | disposition home or self-care (01) ==
LOC: SDC 06:20 → SURG B 12:31
PROVIDERS: ADMIT Surgery; ATTEND Surgery
PROC: 01NB0ZZ Release Lumbar Nerve, Open Approach (ICD-10-PCS; principal; 2021-07-07)
DX: M48.061 Spinal stenosis, lumbar region without neurogenic claudication (principal); M54.16 Radiculopathy, lumbar region; G47.33 Obstructive sleep apnea (adult) (pediatric); E78.5 Hyperlipidemia, unspecified; I10 Essential (primary) hypertension; E11.9 Type 2 diabetes mellitus without complications; M19.90 Unspecified osteoarthritis, unspecified site; K21.9 Gastro-esophageal reflux disease without esophagitis; I48.91 Unspecified atrial fibrillation; Z87.891 Personal history of nicotine dependence; Z79.01 Long term (current) use of anticoagulants; Z79.899 Other long term (current) drug therapy; Z95.0 Presence of cardiac pacemaker
CPT/HCPCS: 63030; 63047; 63048; 76000; C1776; 96374; 96375; 96376; G0378; J0690; J1170; J2270; J2370; J2405; J2704; J2765; J3010; J3370; J3490; J7050; S0028

== ENCOUNTER 2022-04-19 05:50 | Day surgery (SDC) | payer MEDICARE ==
[2022-04-18 10:29] VITALS: BMI 36.0
[2022-04-19] MEDS ORDERED: fentaNYL PF 100 MCG/2 ML SYRINGE ONE (06:45)
[2022-04-19] MEDS ORDERED: Lidocaine 0.5%/Epinephrine 1:200,000 50 ml Vial ONE (06:52)
[2022-04-19] MEDS ORDERED: CEFAZOLIN 2 GM VIAL ONE (07:51)
[2022-04-19] MEDS ORDERED: Sodium Chloride 0.9% 100 ML ONE (07:51)
[2022-04-19] MEDS ORDERED: PROPOFOL 200 MG/20 ML VIAL ONE (08:13)
[2022-04-19] MEDS ORDERED: Phenylephrine 10 MG/ML VIAL ONE (08:13)
[2022-04-19] MEDS ORDERED: Dexamethasone 20 MG/5 ML VIAL ONE (08:13)
[2022-04-19] MEDS ORDERED: Ondansetron PF 4 MG/2 ML Vial ONE (08:13)
== END 2022-04-19 10:15 | disposition home or self-care (01) ==
LOC: SDC 05:50
PROVIDERS: ATTEND Neurological Surgery
PROC: 01N50ZZ Release Median Nerve, Open Approach (ICD-10-PCS; principal; 2022-04-19)
DX: G56.03 Carpal tunnel syndrome, bilateral upper limbs (principal); E11.9 Type 2 diabetes mellitus without complications; G47.33 Obstructive sleep apnea (adult) (pediatric); E78.5 Hyperlipidemia, unspecified; I10 Essential (primary) hypertension; M19.90 Unspecified osteoarthritis, unspecified site; Z87.891 Personal history of nicotine dependence; Z79.01 Long term (current) use of anticoagulants; Z79.85 Long-term (current) use of injectable non-insulin antidiabetic drugs; Z79.899 Other long term (current) drug therapy; Z95.0 Presence of cardiac pacemaker; Z95.5 Presence of coronary angioplasty implant and graft
CPT/HCPCS: J1100; J2001; J2370; J2405; J2704; J3490

== ENCOUNTER 2023-04-20 05:52 | Day surgery (SDC) | payer MEDICARE ==
[2023-04-19 09:57] VITALS: BMI 34.3
[2023-04-20 06:33] LABS: #Eosinphils 0.2 thou/uL (0.0-0.7); #Monocytes 0.7 thou/uL (0.11-0.59); #Neutrophils 2.9 thou/uL (1.40-6.50); %Basophils 0.5 % (0.0-1.0); %Eosinophils 3.2 % (0.0-10.0); %Lymphocytes 31.9 % (21.0-51.0); %Monocytes 13.1 % (0.0-10.0); %Neutrophils 50.9 % (42.0-75.0); Hematocrit 37.1 % (42.0-52.0); Hemoglobin 12.6 g/dL (14.0-18.0); Mean Corpuscular Hemoglobin 31.3 pg (27.0-31.0); Mean Corpuscular Volume 92.1 fl (78.0-98.0); Mean Platelet Volume 9.9 fL (7.4-10.4); Platelet Count 259 10x3/uL (130-400); RBC Distribution Width 15.2 % (11.5-14.5); Red Blood Cell (RBC) Count 4.03 mill/uL (4.70-6.10); White Blood Cell (WBC) Count 5.7 10x3/uL (4.8-10.8)
[2023-04-20 06:45] LABS: INR-International Normal Ratio 1.3; PTT 29.3 sec (22.9-36.1); Prothrombin Time 16.3 sec (12.0-14.7)
[2023-04-20 06:53] LABS: Anion Gap 14 mmol/L (10-20); BUN (Urea Nitrogen) 22 mg/dL (8.4-25.7); Calc. Creatinine Clearance 90 mL/min (70-130); Calcium 9.3 mg/dL (7.8-10.44); Carbon Dioxide 28 mmol/L (23-31); Chloride 101 mmol/L (98-107); Estimated GFR 50; Glucose 109 mg/dL (80-115); Sodium 139 mmol/L (136-145)
[2023-04-20] MEDS ORDERED: PROPOFOL 20 ML ONE (07:37)
[2023-04-20] MEDS ORDERED: Glycopyrrolate 0.2 MG/ML 5 ML SYRINGE ONE (07:38)
== END 2023-04-20 08:50 | disposition home or self-care (01) ==
LOC: SDC 05:52
PROVIDERS: ATTEND Internal Medicine Cardiovascular Disease
DX: I48.19 Other persistent atrial fibrillation (principal)
CPT/HCPCS: 36415; 80048; 85025; 85610; 85730; 92960; 93005; 93010; J2704

== ENCOUNTER 2023-04-25 12:30 | Inpatient (IN) | payer MEDICARE ==
[2023-04-25 13:38] VITALS: BMI 34.3
[2023-04-25 15:28] LABS: Hematocrit 37.7 % (38.8-50.0); Hemoglobin 12.9 g/dL (13.5-17.5); Mean Corpuscular HGB CONC 34.2 g/dL (32.0-36.0); Mean Corpuscular Hemoglobin 31.2 pg (27.0-33.0); Mean Corpuscular Volume 91.1 fl (81.2-95.1); Mean Platelet Volume 10.8 fl (7.4-10.4); Platelet Count 282 10x3/uL (150-450); RBC Distribution Width 15.1 % (11.5-14.5); Red Blood Cell (RBC) Count 4.14 10x6/uL (4.32-5.72); White Blood Cell (WBC) Count 8.5 10x3/uL (3.5-10.5)
[2023-04-25 15:35] LABS: INR-International Normal Ratio 1.1; Prothrombin Time 11.3 sec (9.5-12.1)
[2023-04-25 15:40] LABS: ALT (SGPT) 14 U/L (8-55); AST (SGOT) 15 U/L (5-34); Albumin 4.5 g/dL (3.4-4.8); Alkaline Phosphatase 83 U/L (40-110); Anion Gap 19 mmol/L (10-20); BUN (Urea Nitrogen) 33 mg/dL (8.4-25.7); Calc. Creatinine Clearance 87 mL/min (70-130); Calcium 9.7 mg/dL (7.8-10.44); Carbon Dioxide 24 mmol/L (23-31); Chloride 100 mmol/L (98-107); Estimated GFR 48; Globulin 3.4 g/dL (2.4-3.5); Glucose 88 mg/dL (80-115); Potassium 4.6 mmol/L (3.5-5.1); Protein, Total 7.9 g/dL (5.8-8.1); Sodium 138 mmol/L (136-145)
[2023-05-01] MEDS ORDERED: Iopamidol 370 76% 100 ML VIAL ONE (09:23)
[2023-05-01] MEDS ORDERED: CEFAZOLIN 2 GM VIAL ONE (11:08)
[2023-05-01] MEDS ORDERED: CEFAZOLIN 1 GM VIAL ONE (11:08)
[2023-05-01] MEDS ORDERED: Protamine Sulfate 50 MG/5 ML VIAL ONE (11:08)
[2023-05-01] MEDS ORDERED: Heparin 10,000 UNITS/ 10 ML VIAL ONE (11:08)
[2023-05-01] MEDS ORDERED: fentaNYL 50 mcg/mL 1 mL Vial ONE (12:09)
[2023-05-01] MEDS ORDERED: SUGAMMADEX SODIUM 200 MG/2 ML VIAL ONE (12:09)
[2023-05-01] MEDS ORDERED: Ondansetron PF 4 MG/2 ML Vial ONE (12:14)
[2023-05-01] MEDS ORDERED: Dexamethasone 20 MG/5 ML VIAL ONE (12:14)
[2023-05-01] MEDS ORDERED: PROPOFOL 200 MG/20 ML VIAL ONE (12:14)
[2023-05-01] MEDS ORDERED: Lidocaine 1% PF 5 ML VIAL ONE (12:14)
[2023-05-01] MEDS ORDERED: Rocuronium Bromide 10 MG/ML (10ML VIAL) ONE (12:14)
== END 2023-05-01 17:12 | disposition home or self-care (01) | DRG 274 ==
LOC: SURG A 05-01 08:59
PROVIDERS: ADMIT Internal Medicine Cardiovascular Disease; ATTEND Internal Medicine Cardiovascular Disease
PROC: B24BZZ4 Ultrasonography of Heart with Aorta, Transesophageal (ICD-10-PCS; principal; 2023-05-01)
PROC: 02L73DK Occlusion of Left Atrial Appendage with Intraluminal Device, Percutaneous Approach (ICD-10-PCS; 2023-05-01)
DX: I48.21 Permanent atrial fibrillation (principal); Z00.6 Encounter for examination for normal comparison and control in clinical research program; Z79.899 Other long term (current) drug therapy; Z79.01 Long term (current) use of anticoagulants
CPT/HCPCS: 33340; 80053; 85027; 85347; 85610; 86850; 86900; 86901; 93306; 93312; C1759; C1760; C1769; C1894; J0690; J1100; J1644; J2405; J2704; J2720; J3010; Q9967

== ENCOUNTER 2023-06-14 05:43 | Day surgery (SDC) | payer MEDICARE ==
[2023-06-12 10:54] VITALS: BMI 34.3
[2023-06-14 06:51] LABS: #Eosinphils 0.3 thou/uL (0.0-0.7); #Monocytes 0.7 thou/uL (0.11-0.59); #Neutrophils 2.8 thou/uL (1.40-6.50); %Basophils 0.4 % (0.0-1.0); %Eosinophils 5.9 % (0.0-10.0); %Lymphocytes 28.3 % (21.0-51.0); %Monocytes 12.5 % (0.0-10.0); %Neutrophils 52.7 % (42.0-75.0); Hematocrit 32.7 % (42.0-52.0); Hemoglobin 10.9 g/dL (14.0-18.0); Mean Corpuscular HGB CONC 33.3 g/dL (32.0-36.0); Mean Corpuscular Hemoglobin 31.2 pg (27.0-31.0); Mean Corpuscular Volume 93.7 fl (78.0-98.0); Mean Platelet Volume 9.8 fL (7.4-10.4); Platelet Count 211 10x3/uL (130-400); RBC Distribution Width 15.9 % (11.5-14.5); Red Blood Cell (RBC) Count 3.49 mill/uL (4.70-6.10); White Blood Cell (WBC) Count 5.4 10x3/uL (4.8-10.8)
[2023-06-14 07:13] LABS: Anion Gap 9 mmol/L (10-20); BUN (Urea Nitrogen) 16 mg/dL (8.4-25.7); Calc. Creatinine Clearance 114 mL/min (70-130); Calcium 8.9 mg/dL (7.8-10.44); Carbon Dioxide 29 mmol/L (23-31); Chloride 103 mmol/L (98-107); Estimated GFR 66; Glucose 98 mg/dL (80-115); Potassium 3.2 mmol/L (3.5-5.1); Sodium 138 mmol/L (136-145)
[2023-06-14] MEDS ORDERED: Glycopyrrolate 0.2 MG/ML 5 ML SYRINGE ONE (08:05)
[2023-06-14] MEDS ORDERED: PROPOFOL 200 MG/20 ML VIAL ONE (08:05)
== END 2023-06-14 09:12 | disposition home or self-care (01) ==
LOC: SDC 05:43
PROVIDERS: ATTEND Internal Medicine Cardiovascular Disease
PROC: B246ZZ4 Ultrasonography of Right and Left Heart, Transesophageal (ICD-10-PCS; principal; 2023-06-14)
DX: I48.0 Paroxysmal atrial fibrillation (principal); Z95.818 Presence of other cardiac implants and grafts
CPT/HCPCS: 80048; 85025; 93312